=== PATIENT | female | born 1955 | race Caucasian/White ===

== ENCOUNTER → 2022-04-26 09:09 | Outpatient (CLI) | payer BC, SELFPAY ==
--- NOTE | 2022-04-26 09:21 | XR_ITS ---
FINAL REPORT TECHNIQUE: Bone densitometry calculations of the lumbar spine and right hip were obtained. CLINICAL HISTORY: . post menopausal screening FINDINGS: DEXA BONE DENSITY AXIAL SKELETON Using L1-4, the bone mineral density of the spine is 1.069 g/cm2, corresponding to T-score of 0.2 with a Z-score of 2.0. Using the right hip, the bone mineral density of the femoral neck is 0.748 g/cm2, corresponding to a T-score of -0.9 with a Z-score of 0.6. NOTE: T-score: Standard deviation compared with peak bone mass of young adult mean. *Following the recommendations of the International Society of Bone densitometry, classification of hip BMD is based on the lower of two T-scores; total hip or femoral neck. IMPRESSION: Normal bone mineral density of the lumbar spine and right hip. FRAX 10 year fracture risk is 0.4% for a hip fracture and 6.5% for a major osteoporotic fracture. Reviewed, Interpreted and Dictated by Luana Hollins MD Transcribed by Candida Mattson Authenticated and [facility]
== END ==
LOC: RAD 09:10
PROVIDERS: PCP Pediatrics; Visit Provider Pediatrics
DX: Z78.0 Asymptomatic menopausal state (principal)
CPT/HCPCS: 77080